=== PATIENT | male | born 1945 | race Caucasian/White ===

== ENCOUNTER → 2021-05-06 | Outpatient (CLI) | payer OTHER, MEDICARE | LOC: HYPER 08:28 | PROVIDERS: ATTEND Emergency Medicine | DX: L89.613 Pressure ulcer of right heel, stage 3 (principal); L84 Corns and callosities; J45.909 Unspecified asthma, uncomplicated; I73.9 Peripheral vascular disease, unspecified; I11.9 Hypertensive heart disease without heart failure; E07.89 Other specified disorders of thyroid; M19.90 Unspecified osteoarthritis, unspecified site; F32.9 Major depressive disorder, single episode, unspecified; Z96.643 Presence of artificial hip joint, bilateral; Z96.651 Presence of right artificial knee joint ==

== ENCOUNTER → 2021-05-29 | Outpatient (CLI) | payer OTHER, MEDICARE | LOC: HYPER 07:50 | PROVIDERS: ATTEND Emergency Medicine | DX: L89.613 Pressure ulcer of right heel, stage 3 (principal); I73.9 Peripheral vascular disease, unspecified; I10 Essential (primary) hypertension; J45.909 Unspecified asthma, uncomplicated; M19.90 Unspecified osteoarthritis, unspecified site; F32.9 Major depressive disorder, single episode, unspecified; Z79.01 Long term (current) use of anticoagulants; Z79.899 Other long term (current) drug therapy ==

== ENCOUNTER → 2021-06-16 | Outpatient (CLI) | payer OTHER, MEDICARE | LOC: SJCVCIMAG 07:26 | PROVIDERS: ATTEND Emergency Medicine | DX: I70.203 Unspecified atherosclerosis of native arteries of extremities, bilateral legs (principal); M79.605 Pain in left leg; M79.604 Pain in right leg ==

== ENCOUNTER → 2021-06-16 | Outpatient (CLI) | payer OTHER, MEDICARE | LOC: HYPER 08:19 | PROVIDERS: ATTEND Emergency Medicine | DX: L89.613 Pressure ulcer of right heel, stage 3 (principal); L97.511 Non-pressure chronic ulcer of other part of right foot limited to breakdown of skin; I73.9 Peripheral vascular disease, unspecified; I10 Essential (primary) hypertension; J45.909 Unspecified asthma, uncomplicated; M19.90 Unspecified osteoarthritis, unspecified site; F32.9 Major depressive disorder, single episode, unspecified; Z79.01 Long term (current) use of anticoagulants ==

== ENCOUNTER → 2021-07-24 | Outpatient (CLI) | payer OTHER, MEDICARE | LOC: HYPER 09:45 | PROVIDERS: ATTEND Emergency Medicine | DX: L89.613 Pressure ulcer of right heel, stage 3 (principal); L97.511 Non-pressure chronic ulcer of other part of right foot limited to breakdown of skin; L84 Corns and callosities; I73.9 Peripheral vascular disease, unspecified; I10 Essential (primary) hypertension; J45.909 Unspecified asthma, uncomplicated; M19.90 Unspecified osteoarthritis, unspecified site; F32.9 Major depressive disorder, single episode, unspecified; Z79.01 Long term (current) use of anticoagulants ==

== ENCOUNTER → 2021-07-31 | Outpatient (CLI) | payer OTHER, MEDICARE | LOC: HYPER 07:27 | PROVIDERS: ATTEND Emergency Medicine | DX: L89.613 Pressure ulcer of right heel, stage 3 (principal); L97.512 Non-pressure chronic ulcer of other part of right foot with fat layer exposed; L98.491 Non-pressure chronic ulcer of skin of other sites limited to breakdown of skin; I73.9 Peripheral vascular disease, unspecified; J45.909 Unspecified asthma, uncomplicated; M19.90 Unspecified osteoarthritis, unspecified site; I11.9 Hypertensive heart disease without heart failure; F32.9 Major depressive disorder, single episode, unspecified; Z79.01 Long term (current) use of anticoagulants; Z79.899 Other long term (current) drug therapy ==

== ENCOUNTER → 2021-08-07 | Outpatient (CLI) | payer OTHER, MEDICARE | LOC: HYPER 07:46 | PROVIDERS: ATTEND Emergency Medicine | DX: L89.613 Pressure ulcer of right heel, stage 3 (principal); L97.512 Non-pressure chronic ulcer of other part of right foot with fat layer exposed; L98.491 Non-pressure chronic ulcer of skin of other sites limited to breakdown of skin; L84 Corns and callosities; I73.9 Peripheral vascular disease, unspecified; I11.9 Hypertensive heart disease without heart failure; J45.909 Unspecified asthma, uncomplicated; M19.90 Unspecified osteoarthritis, unspecified site; F32.9 Major depressive disorder, single episode, unspecified; Z79.01 Long term (current) use of anticoagulants ==

== ENCOUNTER → 2021-08-14 | Outpatient (CLI) | payer OTHER, MEDICARE | LOC: HYPER 08:32 | PROVIDERS: ATTEND Emergency Medicine | DX: L89.613 Pressure ulcer of right heel, stage 3 (principal); L98.491 Non-pressure chronic ulcer of skin of other sites limited to breakdown of skin; S91.101D Unspecified open wound of right great toe without damage to nail, subsequent encounter; I73.9 Peripheral vascular disease, unspecified; I10 Essential (primary) hypertension; J45.909 Unspecified asthma, uncomplicated; M19.90 Unspecified osteoarthritis, unspecified site; F32.9 Major depressive disorder, single episode, unspecified; Z79.01 Long term (current) use of anticoagulants; Z79.899 Other long term (current) drug therapy; X58.XXXD Exposure to other specified factors, subsequent encounter ==

== ENCOUNTER → 2021-08-20 | Outpatient (CLI) | payer OTHER, MEDICARE | LOC: HYPER 08:25 | PROVIDERS: ATTEND Emergency Medicine | DX: L89.613 Pressure ulcer of right heel, stage 3 (principal); L97.512 Non-pressure chronic ulcer of other part of right foot with fat layer exposed; L84 Corns and callosities; L98.491 Non-pressure chronic ulcer of skin of other sites limited to breakdown of skin; I73.9 Peripheral vascular disease, unspecified; I10 Essential (primary) hypertension; J45.909 Unspecified asthma, uncomplicated; M19.90 Unspecified osteoarthritis, unspecified site; F32.9 Major depressive disorder, single episode, unspecified; Z79.01 Long term (current) use of anticoagulants ==

== ENCOUNTER → 2021-08-28 | Outpatient (CLI) | payer OTHER, MEDICARE | LOC: HYPER 08:27 | PROVIDERS: ATTEND Emergency Medicine | DX: L89.613 Pressure ulcer of right heel, stage 3 (principal); L97.512 Non-pressure chronic ulcer of other part of right foot with fat layer exposed; L84 Corns and callosities; L98.491 Non-pressure chronic ulcer of skin of other sites limited to breakdown of skin; I73.9 Peripheral vascular disease, unspecified; I10 Essential (primary) hypertension; J45.909 Unspecified asthma, uncomplicated; M19.90 Unspecified osteoarthritis, unspecified site; F32.9 Major depressive disorder, single episode, unspecified; Z79.01 Long term (current) use of anticoagulants ==

== ENCOUNTER → 2021-09-04 | Outpatient (CLI) | payer OTHER, MEDICARE | LOC: HYPER 08:22 | PROVIDERS: ATTEND Emergency Medicine | DX: L89.613 Pressure ulcer of right heel, stage 3 (principal); L97.512 Non-pressure chronic ulcer of other part of right foot with fat layer exposed; L84 Corns and callosities; L98.491 Non-pressure chronic ulcer of skin of other sites limited to breakdown of skin; I73.9 Peripheral vascular disease, unspecified; I10 Essential (primary) hypertension; J45.909 Unspecified asthma, uncomplicated; M19.90 Unspecified osteoarthritis, unspecified site; F32.9 Major depressive disorder, single episode, unspecified; Z79.01 Long term (current) use of anticoagulants ==

== ENCOUNTER → 2021-09-10 | Outpatient (CLI) | payer OTHER, MEDICARE | LOC: HYPER 08:06 | PROVIDERS: ATTEND Emergency Medicine | DX: L89.613 Pressure ulcer of right heel, stage 3 (principal); L97.512 Non-pressure chronic ulcer of other part of right foot with fat layer exposed; L84 Corns and callosities; I73.9 Peripheral vascular disease, unspecified; G62.9 Polyneuropathy, unspecified; I10 Essential (primary) hypertension; J45.909 Unspecified asthma, uncomplicated; M19.90 Unspecified osteoarthritis, unspecified site; I11.9 Hypertensive heart disease without heart failure; F32.9 Major depressive disorder, single episode, unspecified; Z79.01 Long term (current) use of anticoagulants; Z79.899 Other long term (current) drug therapy ==

== ENCOUNTER → 2021-09-25 | Outpatient (CLI) | payer OTHER, MEDICARE | LOC: HYPER 08:32 | PROVIDERS: ATTEND Emergency Medicine | DX: L89.613 Pressure ulcer of right heel, stage 3 (principal); L97.512 Non-pressure chronic ulcer of other part of right foot with fat layer exposed; I73.9 Peripheral vascular disease, unspecified; L84 Corns and callosities; I10 Essential (primary) hypertension; J45.909 Unspecified asthma, uncomplicated; M19.90 Unspecified osteoarthritis, unspecified site; I11.9 Hypertensive heart disease without heart failure; F32.9 Major depressive disorder, single episode, unspecified; Z79.01 Long term (current) use of anticoagulants; Z79.899 Other long term (current) drug therapy ==

== ENCOUNTER → 2021-10-02 | Outpatient (CLI) | payer OTHER, MEDICARE | LOC: HYPER 08:22 | PROVIDERS: ATTEND Emergency Medicine | DX: I70.234 Atherosclerosis of native arteries of right leg with ulceration of heel and midfoot (principal); L89.613 Pressure ulcer of right heel, stage 3; L97.412 Non-pressure chronic ulcer of right heel and midfoot with fat layer exposed; I70.235 Atherosclerosis of native arteries of right leg with ulceration of other part of foot; L97.512 Non-pressure chronic ulcer of other part of right foot with fat layer exposed; L84 Corns and callosities; G62.9 Polyneuropathy, unspecified; J45.909 Unspecified asthma, uncomplicated; M19.90 Unspecified osteoarthritis, unspecified site; I11.9 Hypertensive heart disease without heart failure; F32.9 Major depressive disorder, single episode, unspecified; Z79.899 Other long term (current) drug therapy ==

== ENCOUNTER → 2021-10-09 | Outpatient (CLI) | payer OTHER, MEDICARE | LOC: HYPER 09:14 | PROVIDERS: ATTEND Emergency Medicine Emergency Medical Services | DX: I70.234 Atherosclerosis of native arteries of right leg with ulceration of heel and midfoot (principal); L89.613 Pressure ulcer of right heel, stage 3; L97.411 Non-pressure chronic ulcer of right heel and midfoot limited to breakdown of skin; I70.235 Atherosclerosis of native arteries of right leg with ulceration of other part of foot; L97.512 Non-pressure chronic ulcer of other part of right foot with fat layer exposed; G62.9 Polyneuropathy, unspecified; J45.909 Unspecified asthma, uncomplicated; M19.90 Unspecified osteoarthritis, unspecified site; L84 Corns and callosities; I11.9 Hypertensive heart disease without heart failure; F32.9 Major depressive disorder, single episode, unspecified; Z79.01 Long term (current) use of anticoagulants; Z79.899 Other long term (current) drug therapy ==

== ENCOUNTER → 2021-10-16 | Outpatient (CLI) | payer OTHER, MEDICARE | LOC: HYPER 08:18 | PROVIDERS: ATTEND Emergency Medicine | DX: I70.234 Atherosclerosis of native arteries of right leg with ulceration of heel and midfoot (principal); L89.613 Pressure ulcer of right heel, stage 3; L97.412 Non-pressure chronic ulcer of right heel and midfoot with fat layer exposed; I70.235 Atherosclerosis of native arteries of right leg with ulceration of other part of foot; L97.512 Non-pressure chronic ulcer of other part of right foot with fat layer exposed; J45.909 Unspecified asthma, uncomplicated; M19.90 Unspecified osteoarthritis, unspecified site; R35.1 Nocturia; I11.9 Hypertensive heart disease without heart failure; F32.9 Major depressive disorder, single episode, unspecified; Z79.01 Long term (current) use of anticoagulants; Z79.899 Other long term (current) drug therapy ==